=== PATIENT | female | born 1990 | race Two or more races ===

== ENCOUNTER 2017-01-22 20:36 | Emergency (ER) | payer MEDICAID ==
[~2017-01-22] VITALS: Ht 160 cm; Wt 92.1 kg
[2017-01-22 20:38] VITALS: BP 110/80
== END 2017-01-22 21:44 | disposition home or self-care (01) ==
LOC: ER 20:37
DX: M54.12 Radiculopathy, cervical region (principal)
CPT/HCPCS: 93005; 99283; A4606; Z7610